=== PATIENT | female | born 1930 | race Caucasian/White ===

== ENCOUNTER → 2018-08-23 | Outpatient (CLI) | payer MEDICARE, OTHER ==
[~2018-08-23] MED LIST: ADVAIR 100/501 E1 INH; ALPHAGAN P 5 ML5 M1 OPH; AZOPT 1% 10 ML5 ML INTRAOC; B12,B-12,B 12500 MC1 PO; CIPROFLOXACIN250 MG PO; COZAAR50 M1 PO; DILTIAZEM ER120 MG PO; DORZOLAMIDE HYD10 ML OP; DOXYCYCLINE100 M3 PO; ELIQUIS2.5 M1 PO; HYDROCODONE BIT1 T11 PO; HYDROCODONE-AC1 EACH PO; KLOR-CON M2020 ME1 PO; LASIX20 MG PO; LASIX40 MG PO; LATANOPROST2.5 ML OPH; LUMIGAN50 DRP OPH; NEURONTIN100 MG PO; POTASSIUM20 MEQ PO; PRAVASTATIN SOD10 MG PO; VENTOLIN H0.09 MG/AC INH; VENTOLIN2 MG PO; VOLTAREN1% TP; Zestril,Prinivil5 MG PO
== END | disposition home or self-care (01) ==
LOC: ORTHO 02:37
DX: M25.511 Pain in right shoulder (principal)

== ENCOUNTER → 2018-10-20 | Outpatient (CLI) | payer MEDICARE, OTHER | END | disposition home or self-care (01) | LOC: ORTHO 03:26 | DX: S72.002D Fracture of unspecified part of neck of left femur, subsequent encounter for closed fracture with routine healing (principal); X58.XXXD Exposure to other specified factors, subsequent encounter ==

== ENCOUNTER → 2018-11-15 | Outpatient (CLI) | payer MEDICARE, OTHER | END | disposition home or self-care (01) | LOC: ORTHO 05:01 | DX: S72.002D Fracture of unspecified part of neck of left femur, subsequent encounter for closed fracture with routine healing (principal); X58.XXXD Exposure to other specified factors, subsequent encounter; M81.0 Age-related osteoporosis without current pathological fracture ==

== ENCOUNTER 2018-11-20 05:39 | Emergency (ER) | payer MEDICARE, OTHER ==
[~2018-11-20] VITALS: Ht 167.6 cm; Wt 61.2 kg
--- NOTE | ~2018-11-20 | EKG ---
[place], [place] ELECTROCARDIOGRAM REPORT NAME: TRANG DON UNIT #: [id number] ROOM: DOCTOR: EPIPHANY DRAFT REPORT BIRTHDATE: [birth year][address] [facility] Test Date: 2018-11-20 Test Time: 05:40:37 Pat Name: TRANG DON Department: Room: Gender: F [employer] Operator: : 1930 Requested By: ROBBIE MOORE Order Number: [id number] Reading MD: Jose Arzola MD Measurements Intervals [place] Rate: 78 P: 0 VA: 195 QRS: -47 QRSD: 101 T: 24 QT: 356 QTc: 406 Interpretive Statements Atrial fibrillation LAD, consider left anterior fascicular block ST depression, consider ischemia, lateral lds Compared to ECG 09/13/2018 17:55:37 Left-axis deviation no longer present T-wave abnormality no longer present Electronically Signed On 11-27-2018 10:23:20 PDT by Jose Arzola MD CM:[email or web address]:ELECTROCARDIOGRAM REPORT [id number] ROBBIE MOORE MD EPIPHANY DRAFT REPORT ROBBIE MOORE MD
[2018-11-20 06:01] LABS: BASO # 0.1 10*3/uL (0.0-0.1); BASO % 0.6 % (0.0-1.0); EOS # 0.2 10*3/uL (0.0-0.4); EOS % 2.6 % (1.0-4.0); HEMATOCRIT 42.4 % (37.0-47.0); HEMOGLOBIN 12.6 g/dl (12.0-16.0); LYMPH # 2.4 10*3/uL (1.3-4.4); LYMPH % 31.4 % (27.0-41.0); MEAN CELL VOLUME 89.6 fl (81.0-99.0); MEAN CORPUSCULAR HGB 26.6 pg (27.0-31.0); MEAN CORPUSCULAR HGB CONC 29.7 g/dl (33.0-37.0); MEAN PLATELET VOLUME 10.7 fl (9.6-12.3); MONO # 0.7 10*3/uL (0.1-1.0); MONO % 9.2 % (3.0-9.0); NEUT # 4.3 10*3/uL (2.3-7.9); NEUT % 55.9 % (47.0-73.0); PLATELET COUNT AUTOMATED 245 10*3/uL (130-400); RED BLOOD COUNT 4.73 10*6/uL (4.10-5.10); RED CELL DISTRI WIDTH 16.1 % (0-14.5); WHITE BLOOD COUNT 7.7 10*3/uL (4.8-10.8)
[2018-11-20 06:17] LABS: ALBUMIN 3.3 gm/dl (3.1-4.5); ALKALINE PHOSPHATASE 97 U/L (45-117); BUN 15 mg/dl (7-24); CHLORIDE 111 mmol/L (98-107); CREATININE 1.21 mg/dL (0.55-1.02); POTASSIUM 4.3 mmol/L (3.5-5.1); SGOT/AST 25 IU/L (3-35); SGPT/ALT 10 U/L (12-78); SODIUM 140 mmol/L (136-145); TOTAL PROTEIN 7.2 gm/dL (6.4-8.2)
[2018-11-20 06:18] LABS: TROPONIN I < 0.015 ng/ml (<0.045)
[2018-11-20 06:24] LABS: ACT PARTIAL THROMBO TIME 29.7 SECONDS (20.0-32.1)
== END 2018-11-20 09:08 | disposition home or self-care (01) ==
LOC: ED 05:39
PROVIDERS: Emergency Medicine Emergency Medical Services
DX: S46.912A Strain of unspecified muscle, fascia and tendon at shoulder and upper arm level, left arm, initial encounter (principal); I13.0 Hypertensive heart and chronic kidney disease with heart failure and stage 1 through stage 4 chronic kidney disease, or unspecified chronic kidney disease; N18.3 Chronic kidney disease, stage 3 (moderate); I50.9 Heart failure, unspecified; J45.909 Unspecified asthma, uncomplicated; E78.00 Pure hypercholesterolemia, unspecified; I48.91 Unspecified atrial fibrillation; Z90.49 Acquired absence of other specified parts of digestive tract; Z90.710 Acquired absence of both cervix and uterus; Z98.890 Other specified postprocedural states; Z79.899 Other long term (current) drug therapy; Z88.8 Allergy status to other drugs, medicaments and biological substances; X58.XXXA Exposure to other specified factors, initial encounter; Y93.89 Activity, other specified; Y92.89 Other specified places as the place of occurrence of the external cause; Y99.9 Unspecified external cause status

== ENCOUNTER 2019-03-07 20:39 | Emergency (ER) | payer MEDICARE, OTHER ==
[~2019-03-07] VITALS: Ht 167.6 cm; Wt 59.0 kg
[2019-03-07 22:54] LABS: BASO # 0.1 10*3/uL (0.0-0.1); BASO % 0.8 % (0.0-1.0); EOS # 0.2 10*3/uL (0.0-0.4); EOS % 3.9 % (1.0-4.0); HEMATOCRIT 39.7 % (37.0-47.0); HEMOGLOBIN 12.5 g/dl (12.0-16.0); LYMPH # 2.1 10*3/uL (1.3-4.4); LYMPH % 33.5 % (27.0-41.0); MEAN CELL VOLUME 94.1 fl (81.0-99.0); MEAN CORPUSCULAR HGB 29.6 pg (27.0-31.0); MEAN CORPUSCULAR HGB CONC 31.5 g/dl (33.0-37.0); MEAN PLATELET VOLUME 10.3 fl (9.6-12.3); MONO # 0.5 10*3/uL (0.1-1.0); MONO % 8.3 % (3.0-9.0); NEUT # 3.3 10*3/uL (2.3-7.9); NEUT % 53.3 % (47.0-73.0); PLATELET COUNT AUTOMATED 159 10*3/uL (130-400); RED BLOOD COUNT 4.22 10*6/uL (4.10-5.10); RED CELL DISTRI WIDTH 15.8 % (0-14.5); WHITE BLOOD COUNT 6.2 10*3/uL (4.8-10.8)
[2019-03-07 23:04] LABS: ACT PARTIAL THROMBO TIME 29.8 SECONDS (20.0-32.1)
[2019-03-07 23:09] LABS: ALBUMIN 3.3 gm/dl (3.1-4.5); CREATININE 1.48 mg/dL (0.55-1.02); POTASSIUM 4.3 mmol/L (3.5-5.1); TOTAL PROTEIN 6.1 gm/dL (6.4-8.2)
== END 2019-03-07 23:50 | disposition home or self-care (01) ==
LOC: ED 20:39
PROVIDERS: Nurse Practitioner Family
DX: S22.31XA Fracture of one rib, right side, initial encounter for closed fracture (principal); E78.00 Pure hypercholesterolemia, unspecified; I13.0 Hypertensive heart and chronic kidney disease with heart failure and stage 1 through stage 4 chronic kidney disease, or unspecified chronic kidney disease; N18.3 Chronic kidney disease, stage 3 (moderate); I50.9 Heart failure, unspecified; I48.91 Unspecified atrial fibrillation; Z88.8 Allergy status to other drugs, medicaments and biological substances; Z79.899 Other long term (current) drug therapy; W18.39XA Other fall on same level, initial encounter; Y93.89 Activity, other specified; Y92.098 Other place in other non-institutional residence as the place of occurrence of the external cause; Y99.8 Other external cause status

== ENCOUNTER 2019-06-17 15:06 | Inpatient (IN) | payer MEDICARE, OTHER ==
[~2019-06-17] VITALS: Ht 170.1 cm; Wt 52.8 kg
[2019-06-17 15:13] VITALS: BP 128/74
--- NOTE | 2019-06-17 15:15 | NUR ---
DAUGHTER ADAMS [phone]
[2019-06-17 15:58] LABS: BASO % 0.7 % (0.0-1.0); EOS # 0.2 10*3/uL (0.0-0.4); EOS % 2.5 % (1.0-4.0); HEMATOCRIT 43.5 % (37.0-47.0); LYMPH # 2.4 10*3/uL (1.3-4.4); LYMPH % 40.4 % (27.0-41.0); MEAN CELL VOLUME 99.1 fl (81.0-99.0); MEAN CORPUSCULAR HGB CONC 31.3 g/dl (33.0-37.0); MEAN PLATELET VOLUME 10.3 fl (9.6-12.3); MONO # 0.4 10*3/uL (0.1-1.0); MONO % 7.1 % (3.0-9.0); NEUT % 49.1 % (47.0-73.0); PLATELET COUNT AUTOMATED 162 10*3/uL (130-400); RED BLOOD COUNT 4.39 10*6/uL (4.10-5.10); RED CELL DISTRI WIDTH 14.1 % (0-14.5)
[2019-06-17 16:00] VITALS: BP 137/82
[2019-06-17 16:12] LABS: ALBUMIN 3.3 gm/dl (3.1-4.5); CREATININE 1.41 mg/dL (0.55-1.02); POTASSIUM 4.2 mmol/L (3.5-5.1); TOTAL PROTEIN 6.5 gm/dL (6.4-8.2)
[2019-06-17 16:13] LABS: ACT PARTIAL THROMBO TIME 28.1 SECONDS (20.0-32.1); INTERNATIONAL NORM RATIO 1.1 (2.0-3.5)
[2019-06-17] MEDS ORDERED: DIGOX125 MCG PO (17:30)
[2019-06-17] MEDS ORDERED: TRAMADOL HCL50 MG PO (17:30)
--- NOTE | 2019-06-17 17:31 | NUR ---
MED REC COMPLETED WITH [facility]
--- NOTE | 2019-06-17 18:12 | NUR ---
PATIENT DENIES ANY OPEN WOUNDS/AREAS ON BODY. ASSESSED BACK, BUTTOCKS, FEET AND LEGS WITH PATIENT CONSENT. NO BREAKDOWN IN SKIN NOTED.
[2019-06-17 18:30] VITALS: BP 137/82
--- NOTE | 2019-06-17 18:30 | NUR ---
The assessment has been completed. GAURANG GRANDE Time: 1829 A 88 year old FEMALE admitted to under services of PANCHO POLLACK DO. Pt. arrived via ambulatory from ER. Chief complaint: LEFT HIP PAIN. 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 UNABLE TO BEAR MUCH WEIGHT. STATES "BUMPED" LEFT HIP YESTERDAY. GAURANG GRANDE
--- NOTE | 2019-06-17 18:37 | NUR ---
CALLED JANUSZ HER DAUGHTER WITH PATIENT PERMISSION AND UPDATED HER WITH PATIENT STATUS AND ADMISSION ROOM NUMBER.
[2019-06-17 20:00] VITALS: BP 162/77
--- NOTE | 2019-06-17 20:00 | NUR ---
AWAKE & ALERT RESTING IN BED WITH HOB ELEVATED. SKIN PALE, WARM & DRY. HEP LOCK INTACT TO LEFT ARM. PT. VOICES NO C/O AT THIS TIME. CALL LIGHT WITHIN REACH. BED ALARM INTACT.
--- NOTE | 2019-06-17 22:28 | NUR ---
MEDICATED WITH NORCO FOR C/O LEFT HIP PAIN RATED AN 8/10.
--- NOTE | 2019-06-17 23:43 | NUR ---
NORCO WAS EFFECTIVE FOR PT, STATES HER PAIN HAS DECREASED TO A 5/10. WILL CONTINUE TO MONITOR. PT ENCOURAGED TO USE CALL LIGHT PRIOR TO BED EXIT, BED ALARM ACTIVATED. ASSESSMENT COMPLETE.
[2019-06-17 23:51] LABS: BILIRUBIN NEGATIVE (NEGATIVE); BLOOD NEGATIVE (NEGATIVE); CLARITY CLEAR (CLEAR); COLOR YELLOW (YELLOW); GLUCOSE NEGATIVE (NEGATIVE); KETONE NEGATIVE (NEGATIVE); LEUKO ESTERASE NEGATIVE (NEGATIVE); NITRITE NEGATIVE (NEGATIVE); SPECIFIC GRAVITY 1.015 (1.005-1.030); UROBILINOGEN 0.2 E.U./dl (0.2-1.0)
[2019-06-18] VITALS: BP 141/74
--- NOTE | 2019-06-18 01:12 | NUR ---
24 HOUR CHART CHECK COMPLETE.
--- NOTE | 2019-06-18 05:11 | NUR ---
DR FERRERA NOTIFIED OF UPDATED MED REC.
[2019-06-18 06:02] LABS: BASO % 0.8 % (0.0-1.0); EOS # 0.3 10*3/uL (0.0-0.4); EOS % 5.2 % (1.0-4.0); HEMATOCRIT 40.2 % (37.0-47.0); LYMPH # 2.5 10*3/uL (1.3-4.4); MEAN CELL VOLUME 97.1 fl (81.0-99.0); MEAN CORPUSCULAR HGB 30.7 pg (27.0-31.0); MEAN CORPUSCULAR HGB CONC 31.6 g/dl (33.0-37.0); MEAN PLATELET VOLUME 10.5 fl (9.6-12.3); MONO # 0.4 10*3/uL (0.1-1.0); MONO % 8.5 % (3.0-9.0); NEUT # 1.8 10*3/uL (2.3-7.9); NEUT % 35.3 % (47.0-73.0); PLATELET COUNT AUTOMATED 151 10*3/uL (130-400); RED BLOOD COUNT 4.14 10*6/uL (4.10-5.10); RED CELL DISTRI WIDTH 13.9 % (0-14.5)
[2019-06-18 06:26] LABS: CREATININE 1.14 mg/dL (0.55-1.02); POTASSIUM 4.4 mmol/L (3.5-5.1)
[2019-06-18 08:00] VITALS: BP 135/59
--- NOTE | 2019-06-18 08:07 | NUR ---
MORNING ASSESSMENT COMPLETE. NORCO 5/325 GIVEN PER PATIENT REQUEST FOR LEFT HIP PAIN RATING A 8/10.
--- NOTE | 2019-06-18 09:05 | NUR ---
PATIENT STATES THAT NORCO HAS LESSENED THE PAIN.
--- NOTE | 2019-06-18 10:26 | NUR ---
ULTRAM 50MG GIVEN FOR LEFT HIP PAIN RATING AN 8/10.
--- NOTE | 2019-06-18 10:27 | NUR ---
Assessment Specialist in to talk to patient. Patient states lives at HOME with ALONE. There are NO steps in the home. 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 STATES HER DAUGHTER COMES EVERY DAY TO CHECK ON HER. TALKED WITH PT ABOUT SKILLED STAY PRIOR TO GOING HOME AND SHE AGREES IT WOULD BE A GOOD IDEA. PT GIVEN OPTIONS OF LOCAL FACILITIES AND CHOSE REHAB SUITES. WILL HAVE REFERRAL SENT. NO OTHER NEEDS AT THIS TIME. WILL CONTINUE TO FOLLOW. . [place] [facility]
--- NOTE | 2019-06-18 11:52 | NUR ---
ULTRAM NOT WORKING. PATIENT ASKED FOR MORE PAIN MEDICATION. NORCO 5/325 GIVEN.
--- NOTE | 2019-06-18 11:57 | NUR ---
SPOKE WITH DAUGHTER ERNESTO, SHE STATES TALKED WITH HER MOTHER AND THEY DECIDED THEY WANT HER TO GO TO [place] IF POSSIBLE.
[2019-06-18 12:00] VITALS: BP 162/80
[2019-06-18 16:00] VITALS: BP 146/70
--- NOTE | 2019-06-18 19:45 | NUR ---
NORCO GIVEN FOR C/O 09/18 PAIN TO LT HIP PAIN.
[2019-06-18 20:00] VITALS: BP 164/85
--- NOTE | 2019-06-18 21:32 | NUR ---
PATIENT STATED NORCO SOMEWHAT EFFECTIVE, PAIN NOW 6/10, PRN ULTRAM GIVEN FOR PT COMPLAINTS OF CONTINUED PAIN. CALL LIGHT WITHIN REACH, WILL MONITOR
--- NOTE | 2019-06-18 22:45 | NUR ---
PATIENT SLEEPING, NO DISTRES NOTED. BED ALARM INTACT, CALL LIGHT WITHIN REACH, WILL CONTINUE TO MONITOR
--- NOTE | 2019-06-18 23:59 | NUR ---
PATIENT UP TO RESTROOM AT THIS TIME. URINE CULTURE COLLECTED. PATIENT STATES HER HIP FEELS REALLY GOOD RIGHT NOW. STATES IT'S THE FIRST TIME IT'S FEEL BETTER IN 4 DAYS. CALL LIGHT WITHIN REACH, BED ALARM INTACT. WILL MONITOR
[2019-06-19] VITALS: BP 159/94
--- NOTE | 2019-06-19 00:57 | NUR ---
PRN NORCO GIVEN FOR PT COMPLAINTS OF LEFT HIP PAIN RATING IT 9/10. CALL LIGHT WITHIN REACH, BED ALARM INTACT. WILL MONITOR
[2019-06-19 02:00] VITALS: BP 146/86
--- NOTE | 2019-06-19 02:08 | NUR ---
PRN MEDICATION EFFECTIVE PER PT.
--- NOTE | 2019-06-19 02:23 | NUR ---
24 HR chart check completed.
--- NOTE | 2019-06-19 05:17 | NUR ---
PATIENT CONTINUES TO SLEEP. NO DISTRESS NOTED. CALL LIGHT WITHIN REACH, BED ALARM INTACT
[2019-06-19 06:35] LABS: CHLORIDE 109 mmol/L (98-107); POTASSIUM 4.4 mmol/L (3.5-5.1); SODIUM 140 mmol/L (136-145)
[2019-06-19 06:37] LABS: BUN 21 mg/dl (7-24); CREATININE 1.03 mg/dL (0.55-1.02)
[2019-06-19 08:00] VITALS: BP 174/90
--- NOTE | 2019-06-19 08:00 | NUR ---
ASSISTED PATIENT TO RESTROOM. AMBULATED WITH [facility]. C/O LOWER BACK PAIN.
--- NOTE | 2019-06-19 10:49 | NUR ---
MEDICATED WITH PRN NORCO FOR C/O L HIP/BACK PAIN. K-PAD SET UP WELL.
--- NOTE | 2019-06-19 11:40 | NUR ---
THOMAS HELPED SOME.
[2019-06-19 12:00] VITALS: BP 160/80
--- NOTE | 2019-06-19 15:21 | NUR ---
PATIENT IS COMPLETELY DRESSED AND WANTING TO LEAVE. ASSISTED BACK IN BED AND EDUCATED. PATIENT REMAINS DRESSED. K-PAD PLACED. PATIENT STATES HER HIP/BACK FEELS SO MUCH BETTER.
[2019-06-19 16:00] VITALS: BP 138/78
[2019-06-19 20:00] VITALS: BP 154/78
--- NOTE | 2019-06-19 20:15 | NUR ---
IN TO ASSESS PATIENT. ALERT AND ORIENTED BUT FORGETFUL AT TIMES. PATIENT STATED SHE FEELS PRETTY GOOD RIGHT NOW. NO COMPLAINTS. BED ALARM INTACT, CALL LIGHT WITHIN REACH, WILL MONITOR
--- NOTE | 2019-06-19 22:04 | NUR ---
PRN NORCO GIVEN FOR PT COMPLAINTS OF LEFT HIP PAIN. RATING IT 6/10. K-PAD REAPPLIED. BED ALARM INTACT. CALL LIGHT WITHIN REACH, WILL MONITOR
--- NOTE | 2019-06-19 23:25 | NUR ---
PRN MEDICATION APPEARS EFFECTIVE, PT SLEEPING
[2019-06-20] VITALS: BP 159/85
--- NOTE | 2019-06-20 01:43 | NUR ---
PATIENT CONTINUES TO SLEEP. NO DISTRESS NOTED. CALL LIGHT WITHIN REACH, WILL MONITOR
--- NOTE | 2019-06-20 01:59 | NUR ---
ASSISTED PATIENT TO RESTROOM. PATIENT STATES HER HIP FEELS GREAT. PATIENT THEN ASSISTED BACK INTO BED, BED ALARM REAPPLIED. CALL LIGHT LEFT WITHIN REACH
[2019-06-20 07:13] LABS: BUN 20 mg/dl (7-24); CHLORIDE 109 mmol/L (98-107); CREATININE 1.01 mg/dL (0.55-1.02); SODIUM 141 mmol/L (136-145)
[2019-06-20 08:00] VITALS: BP 133/69
--- NOTE | 2019-06-20 08:30 | NUR ---
PHYSICAL THERAPY Screen and PT eval received will follow thank you. Jeannie Lei PT
--- NOTE | 2019-06-20 08:41 | NUR ---
PATIENT C/O L HIP PAIN RATED AT A 9 OUT OF 10. MEDICATED WITH PRN NORCO PER ORDER. K-PAD IN USE ALSO. NO OTHER COMPLAINTS.
--- NOTE | 2019-06-20 08:48 | NUR ---
POWER faxed new patient referral to [facility] on this date. Pending acceptance.
--- NOTE | 2019-06-20 09:20 | NUR ---
PATIENT DOES NOT REMEMBER GETTING PAIN PILL EARLIER. STILL IN PAIN.
--- NOTE | 2019-06-20 10:15 | NUR ---
Physical Therapy evaluation completed on fourth floor with full evaluation to follow. Recommend physical therapy per plan of care and SNF upon discharge. If to go home recomend 24 hr care/assit for safety and f/u HH. Thank you for this referral. Jeannie Lei PT
--- NOTE | 2019-06-20 10:15 | NUR ---
Occupational Therapy evaluation completed on four with full evaluation to follow. Recommend occupational therapy per plan of care and SNF upon discharge. If refused, home with SN, OT, and PT with 01/09 supervision assist. Thank you for this referral. Nanci Stephens OTR/L
--- NOTE | 2019-06-20 11:09 | NUR ---
MEDICATED WITH PRN ULTRAM PER ORDER AND REQUEST.
[2019-06-20 12:00] VITALS: BP 131/60
--- NOTE | 2019-06-20 12:00 | NUR ---
PATEINPolo HIGUERA HELPED. ASSISTED PATIENT TO RESTROOM,THEN TO CHAIR FOR LUNCH.
--- NOTE | 2019-06-20 12:06 | NUR ---
Patient has been accepted at [facility]. Once medically stable can be discharged.
--- NOTE | 2019-06-20 13:31 | NUR ---
PT OT faxed to [facility] on this date. Patient has been accepted and can discharge once medically stable.
--- NOTE | 2019-06-20 13:33 | NUR ---
PATIENT CALLED NURSE TO ROOM AND STATED SHE IS DIZZY AND GOING TO PASS OUT. ASSISTED BACK TO BED. BP 165/59, HR 60,POX 100% RA. WILL MONITOR.
--- NOTE | 2019-06-20 13:45 | NUR ---
DR. GARZON UPDATED ON PATIENT STATUS.
--- NOTE | 2019-06-20 13:49 | NUR ---
PASRR compelted online in [facility]. Submitted successfully and does not require further review. Copy placed in patient chart and faxed to [facility].
--- NOTE | 2019-06-20 14:37 | NUR ---
PATIENT STATES THE LIGHTHEADINESS IS GONE BP 160/80,POX 100% RA,HR 87. C/O BACK PAIN BUT WHEN QUESTIONED SHE STATES WELL MY HIP.
--- NOTE | 2019-06-20 14:47 | NUR ---
MEDICATED WITH PRN NORCO PER ORDER AND FOR C/O L HIP/BACK PAIN.
[2019-06-20 16:00] VITALS: BP 145/90
[2019-06-20] MEDS ORDERED: HYDROCODONE-AC1 EAC1 PO (16:04)
--- NOTE | 2019-06-20 17:00 | NUR ---
PATIENT DISCHRGED TO [facility] VIA PRIVATE CAR. NORCO PRESCRIPTION IN [place]ELOPE. NURSE TO NURSE REPORT GIVEN.
== END 2019-06-20 17:00 | disposition other institution (70) | DRG 556 ==
LOC: ED 15:06 → 4E 16:51 → EDHOLD 16:51 → 4E 16:59
PROVIDERS: Emergency Medicine; Internal Medicine; Student in an Organized Health Care Education/Training Program; ADMIT Family Medicine
DX: M25.552 Pain in left hip (principal); I50.22 Chronic systolic (congestive) heart failure; I48.11 Longstanding persistent atrial fibrillation; I13.0 Hypertensive heart and chronic kidney disease with heart failure and stage 1 through stage 4 chronic kidney disease, or unspecified chronic kidney disease; R53.1 Weakness; R26.2 Difficulty in walking, not elsewhere classified; R35.0 Frequency of micturition; R30.0 Dysuria; R39.11 Hesitancy of micturition; G89.29 Other chronic pain; R73.9 Hyperglycemia, unspecified; J45.20 Mild intermittent asthma, uncomplicated; Z96.642 Presence of left artificial hip joint; E78.00 Pure hypercholesterolemia, unspecified; N18.3 Chronic kidney disease, stage 3 (moderate); Z79.01 Long term (current) use of anticoagulants; Z88.8 Allergy status to other drugs, medicaments and biological substances; Z87.440 Personal history of urinary (tract) infections; Z91.81 History of falling; Z90.49 Acquired absence of other specified parts of digestive tract; Z90.710 Acquired absence of both cervix and uterus; Z82.49 Family history of ischemic heart disease and other diseases of the circulatory system; Z82.3 Family history of stroke; Z83.6 Family history of other diseases of the respiratory system